=== PATIENT | male | born 1950 | race Caucasian/White ===

== ENCOUNTER 2022-10-16 12:49 | Outpatient (CLI) | payer OTHER, SELFPAY | END 2022-10-16 12:50 | disposition home or self-care (01) | PROVIDERS: Visit Provider Chiropractor | DX: I25.9 Chronic ischemic heart disease, unspecified (principal); I35.1 Nonrheumatic aortic (valve) insufficiency; I34.0 Nonrheumatic mitral (valve) insufficiency; I07.1 Rheumatic tricuspid insufficiency | CPT/HCPCS: 93306 ==